=== PATIENT | female | born 1995 | race Caucasian/White ===

== ENCOUNTER → 2017-02-06 | Outpatient (CLI) | payer OTHER ==
--- NOTE | 2017-02-06 13:24 | DIAGNOSTIC IMAGING REPORT ---
EXAMINATION: PELVIC ULTRASOUND CLINICAL HISTORY: Pelvic pain status post miscarriage COMPARISON STUDY: None FINDINGS: The uterus measured 10.5 x 4.2 x 5.5 cm. The endometrial stripe measured 11 mm. The right ovary measured 11 x 29 x 15 mm. The left ovary measured 4 7 x 39 x 34 mm. There is a 36 mm cyst, likely functional.. There is no ultrasonographic evidence of ovarian torsion. It should be noted that ovarian torsion can be present with normal Doppler ultrasonographic findings. There was no evidence of pathologic free pelvic fluid. IMPRESSION: 36 mm left ovarian cyst/follicle likely functional. Otherwise normal transabdominal pelvic ultrasound. Electronically signed by: Reuben Reece M.D. 02/06/2017 1:22 PM Dictated Date/Time: 02/06/2017 1:21 PM
== END | disposition home or self-care (01) ==
LOC: C.ULTR 12:26
PROVIDERS: ATTEND Nurse Practitioner Family
DX: O03.9 Complete or unspecified spontaneous abortion without complication (principal); Z3A.00 Weeks of gestation of pregnancy not specified; N83.202 Unspecified ovarian cyst, left side